=== PATIENT | male | born 1990 | race Caucasian/White ===

== ENCOUNTER 2020-05-06 20:08 | Emergency (ER) | payer SELFPAY ==
[2020-05-06 20:29] VITALS: BP 141/76; PULSE 85; RESP 18; TEMP 36.8; O2SAT 98
--- NOTE | 2020-05-06 20:59 | ED.SKABFB ---
HPI - Skin/Abscess/Foreign Bdy General Chief complaint: Skin/Abscess/Foreign Body Stated complaint: bit by spider? Time Seen by Provider: 05/06/20 20:59 Source: patient Mode of arrival: ambulatory Limitations: no limitations History of Present Illness HPI narrative: Patient is a 29-year-old male with a history of MRSA skin infection who presents for evaluation of wound to left forearm. Patient states the wound has been present for over 48 hours. He reports redness, purulence and drainage from the site. Mild pain. No fever. Patient states he has 2 other lesions, but denies any redness or drainage from the sites. Patient states he has a history of staph skin infection in his left knee which required antibiotic treatment in the past. Patient states that he has known spider infestation at his house, is concerned may be for spider envenomation. He denies any bruising of the tissue. 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 Related Data Allergies Allergy/AdvReac Type Severity Reaction Status Date / Time No Known Allergies Allergy Verified 05/06/20 20:28 Review of Systems Review of Systems: Narrative: CONSTITUTIONAL: Denies fever CARDIOVASCULAR: Denies chest pain RESPIRATORY: Denies cough or dyspnea. GASTROINTESTINAL: Denies abdominal pain SKIN: Reports irritation to left forearm, wound MUSCULOSKELETAL: Denies back pain NEUROLOGIC: Denies headache PMFSH Past Medical History Medical History (Updated 05/06/20 @ 21:20 by Radha Flores MD) Infection of skin due to methicillin resistant Staphylococcus aureus (MRSA) Social History Social History (Updated 05/06/20 @ 21:20 by Radha Flores MD) Smoking status: Current every day smoker Tobacco type: cigarettes Alcohol intake: current Substance use: current Substance use type: marijuana Living arrangements: with family Gender identity (if verbalized by the patient): Male Exam Narrative: Exam Narrative: GENERAL: Awake, alert, conversant HEAD: Normocephalic, atraumatic. EYES: PERRLA and EOMI. ENT: Nares clear, no rhinorrhea or epistaxis. Mucous membranes moist. NECK: Supple. CHEST: No respiratory distress, breathing even and non labored HEART: Regular rate, sinus rhythm ABDOMEN:Non distended, non tender EXTREMITIES: Normal range of motion. No edema. SKIN: Warm, 1 cm x 1.5 cm circumferential, raised, pustular appearing abscess with fluctuance, erythema to the left forearm, just distal to the elbow. No vesicles. Minimal erythema. No streaking erythema. 2 lesions to the right upper extremity, one distal to the elbow, one proximal to the elbow, mildly tender, pustular in appearance without fluctuance, tenderness or erythema. NEURO:No focal deficits. Alert and oriented x3 Course Vital Signs Vital signs: Vital Signs Temperature 36.8 C 05/06/20 20:29 Pulse Rate 85 05/06/20 20:29 Respiratory Rate 18 05/06/20 20:29 Blood Pressure 141/76 H 05/06/20 20:29 Pulse Oximetry 98 05/06/20 20:29 Temperature 36.8 C 05/06/20 20:29 Pulse Rate 85 05/06/20 20:29 Respiratory Rate 18 05/06/20 20:29 Blood Pressure 141/76 H 05/06/20 20:29 Pulse Oximetry 98 05/06/20 20:29 Procedures Abscess I/D upper extremity: Date of Incision: 05/06/20 Time of Incision: 21:22 Side (if applicable): left Local Anesthetic: lidocaine 1% Amount of anesthesia used (mL): 3 Technique: incised with #11 blade Amount of fluid expressed (mL): 3 Irrigation: Yes Packing used?: none I&D Results: Pus and Blood MDM - Skin/Abscess/Foreign Bdy MDM Narrative Medical decision making narrative: Patient presented for evaluation of skin wound to left forearm that does appear infected on exam. There is evidence of a small abscess. This was drained as described in the procedure note. Given patient's history of MRSA I do think that gi
[2020-05-06] MEDS: TETANUS,DIPHTHERIA,AC PERTUSSIS ADULT (0.5 ML) BOOSTRIX IM (21:33)
[2020-05-06] MEDS: CEPHALEXIN 500 MG CAPSULE PO (21:33)
[2020-05-06 21:55] VITALS: BP 139/68; PULSE 82; RESP 20; TEMP 36.8; O2SAT 97
== END 2020-05-06 21:55 | disposition home or self-care (01) ==
PROVIDERS: Emergency Provider Emergency Medicine
DX: L02.414 Cutaneous abscess of left upper limb (principal); Z23 Encounter for immunization; Z86.14 Personal history of Methicillin resistant Staphylococcus aureus infection
CPT/HCPCS: 10060; 90471; 90715; 99283; A9270